=== PATIENT | female | born 1995 | race Caucasian/White ===

== ENCOUNTER 2017-01-26 13:39 | Emergency (ER) | payer OTHER ==
[~2017-01-26] VITALS: Ht 165.1 cm; Wt 59.0 kg
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
[~2017-01-26 13:39] MED LIST: AMOXICILLIN875 MG PO; BENADRYL25 M1 PO; FIORICET PO; NEXPLANON68 MG SUBQ; NO MEDICATIONS; PEPCID AC20 M2 PO; PHENERGAN PO; PREDNISONE PO; PRENATAL VITAMINS; ZYRTEC PO
== END 2017-01-26 15:45 | disposition home or self-care (01) ==
LOC: SED 13:39
DX: S63.615A Unspecified sprain of left ring finger, initial encounter (principal); F17.210 Nicotine dependence, cigarettes, uncomplicated; Y08.89XA Assault by other specified means, initial encounter
CPT/HCPCS: 29530; 73140; 99283